=== PATIENT | male | born 1985 | race Asian ===

== ENCOUNTER 2021-09-18 05:41 | Inpatient (IN) ==
[~2021-09-18 05:41] MED LIST: DiMENhydriNATE IV 50 mg/ml 1 ml VIAL IV PUSH PRN; Naloxone 0.4 mg VIAL 0.4 mg/ml 1 ml VIAL IV PRN; Ondansetron 4 mg VIAL 2 MG/ML 2 ml VIAL IV PRN; cefTRIAXone 2 GM ADDV.VIAL ONE; diPHENhydraMINE IV 50 MG/ML 1 ml VIAL (BENADRYL) IV PRN; fentaNYL 100 mcg/2 ml 50 MCG/ML VIAL IV PRN
[2021-09-18] MEDS ORDERED: Lactated Ringers 1000 ml BAG 1,000 ML IV SCH (06:00)
[2021-09-18] MEDS ORDERED: Buffered Lidocaine 1% SYRIN 1 ml INTRADERM ONE (06:00)
[2021-09-18] MEDS ORDERED: Lidocaine 2% PF 5 ML VIAL ONE (06:56)
[2021-09-18] MEDS ORDERED: Ondansetron 4 mg VIAL 2 MG/ML 2 ml VIAL ONE ×2 (06:56→11:33)
[2021-09-18] MEDS ORDERED: Dexamethasone IV 4 MG/ML VIAL 1 ml VIAL ONE ×2 (06:56→12:17)
[2021-09-18] MEDS ORDERED: Propofol 10 MG/ML 20 ML BTL ONE (06:57)
[2021-09-18] MEDS ORDERED: Iohexol 180 (CONTRAST) 10 ML SDV IV ONE (07:09)
[2021-09-18] MEDS ORDERED: Midazolam 2 mg/2 ml VIAL 1 mg/ml 2 ml VIAL (2 mg) ONE (07:12)
[2021-09-18] MEDS ORDERED: fentaNYL 100 mcg/2 ml 50 MCG/ML VIAL ONE ×2 (07:37→12:10)
[2021-09-18] MEDS ORDERED: fentaNYL 250 mcg/5 ml 50 MCG/ML 5 ml VIAL (250 MCG) ONE (07:50)
[2021-09-18] MEDS ORDERED: Ketamine HCL 50 mg/ml 10 ml VIAL (500 MG) ONE (08:03)
[2021-09-18] MEDS ORDERED: Levalbuterol HFA INHALER MDI ONE (08:43)
[2021-09-18] MEDS ORDERED: Iohexol 350 (CONTRAST) 500 ML MDV IV ONE (10:08)
[2021-09-18] MEDS ORDERED: Dexamethasone IV 4 MG/ML VIAL 1 ml VIAL IV SLOW PU ONE (12:18)
[2021-09-18] MEDS ORDERED: DiMENhydriNATE IV 50 mg/ml 1 ml VIAL ONE (12:39)
[2021-09-18] MEDS ORDERED: Enalaprilat IV 1.25 mg/ml 1 ml VIAL (1.25 MG) IV ONE (13:02)
[2021-09-18] MEDS ORDERED: Acetaminophen IV 1 GM/100ML 100 ML IV ONE ×2 (13:04)
[2021-09-18] MEDS ORDERED: Prochlorperazine 5 mg/ml 2 ml VIAL (10 mg) IV PRN (14:00)
[2021-09-18] MEDS ORDERED: oxyCODONE/Acetamin 5/325 mg TAB PO PRN (14:04)
[2021-09-18] MEDS ORDERED: Prochlorperazine 5 mg/ml 2 ml VIAL (10 mg) ONE (14:44)
[2021-09-18 15:11] LABS: ABS Lymphocytes 1.1 10^3/ul (1.0-4.8); ABS Monocytes 0.1 10^3/ul (0-0.8); ABS Neutrophils 10.6 10^3/ul (1.5-7.7); Hematocrit 42 % (42-52); Hemoglobin 13.6 g/dL (14.0-18.0); Lymphocyte % 9.2 %; Mean Corpuscular HGB Conc 33 g/dL (31-36); Mean Corpuscular Hemoglobin 27 pg (27-31); Mean Corpuscular Volume 82 fL (80-94); Mean Platelet Volume 9.1 fL (7.4-10.4); Nucleated Red Blood Cells % 0.1; Platelet Count 239 10^3/uL (150-450); Red Blood Count 5.05 10^6 /uL (4.18-5.48); Red Cell Distribution Width 15 % (10-15); White Blood Count 11.8 10^3/uL (3.5-10.8)
[2021-09-18] MEDS ORDERED: Enoxaparin 40 MG/0.4 ML SYR SUBCUT SCH (16:00)
[2021-09-18 16:02] LABS: Albumin 4.6 g/dL (3.2-5.2); Albumin/Globulin Ratio 1.3 (1-3); Calcium 9.4 mg/dL (8.6-10.3); Globulin 3.6 g/dL (2-4); Magnesium 1.9 mg/dL (1.9-2.7); Potassium 3.8 mmol/L (3.5-5.0); Total Bilirubin 0.7 mg/dL (0.2-1.0); Total Protein 8.2 g/dL (6.4-8.9); eGFR CKD-EPI 115.5 (>60)
[2021-09-18 18:16] LABS: ABS Lymphocytes 1.1 10^3/ul (1.0-4.8); ABS Monocytes 0.1 10^3/ul (0-0.8); Hematocrit 41 % (42-52); Hemoglobin 13.4 g/dL (14.0-18.0); Lymphocyte % 9.7 %; Mean Corpuscular HGB Conc 33 g/dL (31-36); Mean Corpuscular Hemoglobin 27 pg (27-31); Mean Corpuscular Volume 82 fL (80-94); Mean Platelet Volume 9.3 fL (7.4-10.4); Platelet Count 249 10^3/uL (150-450); Red Blood Count 4.99 10^6 /uL (4.18-5.48); Red Cell Distribution Width 15 % (10-15); White Blood Count 11.2 10^3/uL (3.5-10.8)
[2021-09-18] MEDS ORDERED: Cefepime 1 GM in Dextrose 1 GM/50 ML BAG IV SCH (18:30)
[2021-09-18] MEDS: LACTATED RINGERS IV SCH ×3 (18:31→23:35)
[2021-09-18] MEDS: Cefepime 2 GM in Dextrose 2 GM/50 ML BAG IV SCH (18:36)
[2021-09-18] MEDS ORDERED: Ondansetron 4 mg VIAL 2 MG/ML 2 ml VIAL IV PRN (19:46)
[2021-09-18 19:58] LABS: PCO2 Arterial 34 mmHg (35-45); PO2 Arterial 80 mmHg (80-100)
[2021-09-18] MEDS: Enalaprilat IV 1.25 mg/ml 1 ml VIAL (1.25 MG) IV SCH (19:58)
[2021-09-18] MEDS ORDERED: Labetalol IV 5 MG/ML 20 ml VIAL IV PUSH ONE (20:36)
[2021-09-18 21:28] LABS: Urine Appearance Turbid; Urine Bacteria Absent (Absent); Urine Bilirubin Negative (Negative); Urine Blood 3+ (Negative); Urine Color Red; Urine Glucose 1+(50 mg/dL) (Negative); Urine Ketones Trace (Negative); Urine Nitrite Negative (Negative); Urine Protein 2+(100 mg/dL) (Negative); Urine Red Blood Cell 3+(>10/hpf) (Absent); Urine Specific Gravity 1.025 (1.002-1.030); Urine Urobilinogen Negative (Negative); Urine White Blood Cell Absent (Absent)
[2021-09-18] MEDS: oxyCODONE/Acetamin 5/325 mg TAB PO PRN (21:56)
[2021-09-19] MEDS: Enalaprilat IV 1.25 mg/ml 1 ml VIAL (1.25 MG) IV SCH (01:35)
[2021-09-19] MEDS: Cefepime 2 GM in Dextrose 2 GM/50 ML BAG IV SCH (05:48)
[2021-09-19 07:44] LABS: ABS Lymphocytes 2.2 10^3/ul (1.0-4.8); ABS Neutrophils 7.9 10^3/ul (1.5-7.7); Eosinophil % 0.1 %; Hematocrit 39 % (42-52); Hemoglobin 12.6 g/dL (14.0-18.0); Lymphocyte % 19.8 %; Mean Corpuscular HGB Conc 32 g/dL (31-36); Mean Corpuscular Hemoglobin 27 pg (27-31); Mean Corpuscular Volume 83 fL (80-94); Mean Platelet Volume 9.1 fL (7.4-10.4); Platelet Count 242 10^3/uL (150-450); Red Blood Count 4.73 10^6 /uL (4.18-5.48); Red Cell Distribution Width 15 % (10-15); White Blood Count 11.1 10^3/uL (3.5-10.8)
[2021-09-19 08:25] LABS: Albumin 4.2 g/dL (3.2-5.2); Albumin/Globulin Ratio 1.3 (1-3); Calcium 9.4 mg/dL (8.6-10.3); Globulin 3.2 g/dL (2-4); Potassium 3.9 mmol/L (3.5-5.0); Total Bilirubin 1.2 mg/dL (0.2-1.0); Total Protein 7.4 g/dL (6.4-8.9); eGFR CKD-EPI 117.6 (>60)
[2021-09-19 11:25] VITALS: BP 154/91
[2021-09-19] MEDS: oxyCODONE/Acetamin 5/325 mg TAB PO PRN (15:17)
== END 2021-09-19 15:50 | disposition home or self-care (01) | DRG 988 ==
LOC: OR 05:41 → SSU 05:41 → SUATTDRO 15:20 → MEDTELE 21:01 → SUATTDRO 09-19 00:24
PROVIDERS: ADMIT Urology; ATTEND Hospitalist